=== PATIENT | female | born 1990 | race American Indian/Alaskan Native ===

== ENCOUNTER 2017-02-12 19:13 | Inpatient (IN) | payer MEDICAID ==
--- NOTE | 2017-02-12 19:38 | C.PDOC ---
History Of Present Illness 27 year old female presents to the ED for evaluation of depression and SI wth a plan. Patient reports being depressed and wanting to hang herself. Patient is pleasant and cooperative. Time Seen by Provider: 02/12/17 19:38 Chief Complaint (Nursing): Psychiatric Evaluation History Per: Patient History/Exam Limitations: no limitations Onset/Duration Of Symptoms: Hrs Current Symptoms Are (Timing): Still Present Suicide/Self Injury Attempted (Context): Other (hanging) Modifying Factor(s): None Severity: None Associated Symptoms: Depression, Suicidal Thoughts, Suicidal Plan Involuntary Hold By: None Recent travel outside of the [place]: No Additional History Per: Patient Past Medical History Reviewed: Historical Data, Nursing Documentation, Vital Signs Vital Signs: Last Vital Signs Temp 97.8 F 02/12/17 19:17 Pulse 102 H 02/12/17 19:17 Resp 18 02/12/17 19:17 BP 165/105 H 02/12/17 19:17 Pulse Ox 99 02/12/17 20:52 - Medical History PMH: Depression Surgical History: No Surg Hx Family History: States: Unknown Family Hx - Social History Hx Alcohol Use: No Hx Substance Use: Yes (sober for one month) - Immunization History Hx Tetanus Toxoid Vaccination: No Hx Influenza Vaccination: Yes Hx Pneumococcal Vaccination: No Review Of Systems Constitutional: Negative for: Fever, Chills Cardiovascular: Negative for: Chest Pain, Palpitations Respiratory: Negative for: Cough, Shortness of Breath Gastrointestinal: Negative for: Nausea, Vomiting, Abdominal Pain Skin: Negative for: Rash Neurological: Negative for: Weakness Psych: Positive for: Depression, Suicidal ideation Physical Exam - Physical Exam Appears: Non-toxic, Other (slightly depressed) Skin: Warm, Dry Head: Normacephalic Eye(s): bilateral: Normal Inspection Nose: No Discharge Oral Mucosa: Moist Neck: Supple Chest: Symmetrical Cardiovascular: Rhythm Regular, No Murmur Respiratory: No Decreased Breath Sounds, No Rales, No Rhonchi, No Wheezing Gastrointestinal/Abdominal: Soft, No Tenderness Back: Normal Inspection Extremity: Normal ROM Extremity: Bilateral: Atraumatic Neurological/Psych: Oriented x3 Gait: Steady ED Course And Treatment - Laboratory Results Result Diagrams: 02/12/17 20:25 02/12/17 20:25 O2 Sat by Pulse Oximetry: 99 (On RA) Pulse Ox Interpretation: Normal Progress Note: Plan: -Blood work. -UA. -1:1 obs Disposition Discussed With Dr.: Lakshmi Baum Comment: accepted the pt on her service and took over the care at 9:36 PM Doctor Will See Patient In The: Hospital Counseled Patient/Family Regarding: Studies Performed, Diagnosis - Disposition Disposition: HOSPITALIZED Disposition Time: 19:38 Condition: FAIR Forms: [facility] (Bengali) - Clinical Impression Clinical Impression: Bipolar 1 disorder - Scribe Statement The provider has reviewed the documentation as recorded by the Scribe Herrera King All medical record entries made by the Scribe were at my direction and personally dictated by me. I have reviewed the chart and agree that the record accurately reflects my personal performance of the history, physical exam, medical decision making, and the department course for this patient. I have also personally directed, reviewed, and agree with the discharge instructions and disposition. Decision To Admit - Pt Status Changed To: Hospital Disposition Of: Inpatient - Admit Certification Admit to Inpatient:: After my assessment, the patient will require hospitalization for at least two midnights. This is because of the severity of symptoms shown, intensity of services needed, and/or the medical risk in this patient being treated as an outpatient. - InPatient: Physician Admission Certification: I certify that this patient requires 2 or more midnights of care for the following reason:: After my assessment, the patient will require hospitalization for at least two midnights. This is because of the severity of symptoms shown, intensity of services needed, and/or the medical risk in this patient being treated as an outpatient. - . Bed Request Type: Psychiatry Admitting Physician: Lakshmi Baum Patient Diagnosis: Bipolar 1 disorder
[2017-02-12 20:28] LABS: BASO % 0.7 % (0.0-2.0); EOS % 0.5 % (0.0-4.0); HEMOGLOBIN 13.8 g/dL (11.0-16.0); LYMPH # 1.8 K/uL (1.0-4.3); LYMPH % 31.1 % (20.0-40.0); MEAN CORPUSCULAR HEMOGLOBIN 30.1 pg (27.0-31.0); MEAN CORPUSCULAR HGB CONC 33.8 g/dL (33.0-37.0); MEAN PLATELET VOLUME 7.5 fL (7.2-11.7); MONO # 0.6 K/uL (0.0-0.8); NEUT # 3.2 K/uL (1.8-7.0); NEUT % 56.7 % (50.0-75.0); NRBC % 0.1 % (0.0-2.0); RBC 4.59 Mil/uL (3.80-5.20); RED CELL DISTRIBUTION WIDTH 14.1 % (11.5-14.5); WHITE BLOOD COUNT 5.7 K/uL (4.8-10.8)
[2017-02-12 20:40] LABS: ALBUMIN 4.2 g/dL (3.5-5.0); ALT/SGPT 33 U/L (9-52); AST/SGOT 27 U/L (14-36); BLOOD UREA NITROGEN 7 mg/dL (7-17); CALCIUM 8.6 mg/dl (8.6-10.4); GFR AFRICAN-AMERICAN > 60; GFR NON-AFRICAN AMERICAN > 60
[2017-02-12 20:43] LABS: ALB/GLOB RATIO 1.2 (1.0-2.1)
[2017-02-12 21:01] LABS: HCG,QUALITATIVE URINE NEGATIVE (NEGATIVE); URINE BILIRUBIN NEGATIVE (NEGATIVE); URINE BLOOD NEGATIVE (NEGATIVE); URINE CLARITY Clear (Clear); URINE COLOR Straw (YELLOW); URINE GLUCOSE (UA) NORMAL (Normal); URINE LEUKOCYTE ESTERASE NEG Leu/uL (Negative); URINE NITRATE NEGATIVE (NEGATIVE); URINE PROTEIN NEGATIVE (NEGATIVE); URINE UROBILINOGEN NORMAL mg/dL (0.2-1.0)
[2017-02-12 21:30] LABS: BARBITURATES, UR NEGATIVE (NEGATIVE); BENZODIAZEPINES, UR NEGATIVE (NEGATIVE); OPIATES, UR NEGATIVE (NEGATIVE); PHENCYCLIDINE, UR NEGATIVE (NEGATIVE)
[2017-02-12 22:52] VITALS: O2SAT 98
[2017-02-12] MEDS ORDERED: Magnesium Hydroxide Susp 30 ml UD PO PRN (23:25)
--- NOTE | 2017-02-13 00:24 | PCM.BM ---
Treatment Plan Problems - Problems identified on initial assessmt Suicidal Ideation Date Initiated: 02/12/17 Time Initiated: 22:30 Assessment reference: NA Status: Active Depression Date Initiated: 02/12/17 Time Initiated: :30 Assessment reference: NA Status: Active Treatment assets and liabiliti Patient Assests: cooperative, self-reliant, ADL independent, negotiates basic needs, cognitively intact Patient Liabilities: financial problems, poor support system - Milieu Protocol Maintain good personal hygiene: daily Encourage regular showers, daily Remind patient to perform daily oral care, daily Assist patient to perform ADL's Conduct patient checks and document Observation sheet: Q15 minutes Maintain personal safety: every shift Educate patient to report safety concerns to staff, every shift Monitor environment for contraband/sharps Medication safety: Monitor for expected outcome, potential side effects: every shift, Assess barriers to learning: every shift, Assess readiness for medication education: every shift
--- NOTE | 2017-02-13 18:19 | CP.PCM.CON ---
History of Present Illness - History of Present Illness History of Present Illness: 27 year old female presents to the ED for evaluation of depression and SI wth a plan. Patient reports being depressed and wanting to hang herself. Patient is pleasant and cooperative. transgender / identifies as female hx HIV recently detoxed hx HIV with normal T cells and undetectable on Truvada/ Tivacay plans to got to [place] with her boyfriend Review of Systems - Constitutional Constitutional: As Per HPI - EENT Eyes: absent: As Per HPI, Blind Spots, Blurred Vision, Change in Vision, Decreased Night Vision, Diplopia, Discharge, Dry Eye, Exophthalmos, Floaters, Irritation, Itchy Eyes, Loss of Peripheral Vision, Pain, Photophobia, Requires Corrective Lenses, Sees Flashes, Spots in Vision, Tunnel Vision, Other Visual Disturbances, Loss of Vision, Other Ears: absent: As Per HPI, Decreased Hearing, Ear Discharge, Ear Pain, Tinnitus, Abnormal Hearing, Disequilibrium, Dizziness, Other Nose/Mouth/Throat: absent: As Per HPI, Epistaxis, Nasal Congestion, Nasal Discharge, Nasal Obstruction, Nasal Trauma, Nose Pain, Post Nasal Drip, Sinus Pain, Sinus Pressure, Bleeding Gums, Change in Voice, Dental Pain, Dry Mouth, Dysphagia, Halitosis, Hoarsness, Lip Swelling, Mouth Lesions, Mouth Pain, Odynophagia, Sore Throat, Throat Swelling, Tongue Swelling, Facial Pain, Neck Pain, Neck Mass, Other - Breasts Breasts: absent: As Per HPI, Change in Shape, Mass, Pain, Nipple Discharge, Nipple Inversion, Skin Changes, Swelling, Other - Cardiovascular Cardiovascular: absent: As Per HPI, Acrocyanosis, Chest Pain, Chest Pain at Rest , Chest Pain with Activity, Claudication, Diaphoresis, Dyspnea, Dyspnea on Exertion, Edema, Irregular Heart Rhythm, Pain Radiating to Arm/Neck/Jaw, Leg Edema, Leg Ulcers, Lightheadedness, Orthopnea, Palpitations, Paroxysmal Nocturnal Dyspnea, Pedal Edema, Radiating Pain, Rapid Heart Rate, Slow Heart Rate, Syncope, Other - Respiratory Respiratory: absent: As Per HPI, Cough, Dyspnea, Hemoptysis, Dyspnea on Exertion , Wheezing, Snoring, Stridor, Pain on Inspiration, Chest Congestion, Excessive Mucous Production, Change in Mucous Color, Pain with Coughing, Other - Gastrointestinal Gastrointestinal: absent: As Per HPI, Abdominal Pain, Belching, Bloating, Change in Bowel Habits, Change in Stool Character, Coffee Ground Emesis, Constipation, Cramping, Diarrhea, Dyspepsia, Dysphagia, Early Satiety, Excessive Flatus, Fecal Incontinence, Heartburn, Hematemesis, Hematochezia, Loose Stools, Melena, Nausea, Odynophagia, Temesmus, Vomiting, Other - Genitourinary Genitourinary: absent: As Per HPI, Change in Urinary Stream, Difficulty Urinating, Dysuria, Flank Pain, Hematuria, Pyuria, Nocturia, Urinary Incontinence, Urinary Frequency, Urinary Hesitance, Urinary Urgency, Voiding Freq/Small Amts, Freq UTI, Hx Renal/Bladder Calculi, Hx /Renal Surgery, Bladder Distension, Other - Reproductive: Female Reproductive:Female: absent: As Per HPI, Amenorrhea, Amenorrhea/ Control, Currently Menstual, Cycle <21 Days, Cycle >35 Days, Cycle Variable, Menses 1-7 Days, Menses >/= 8 Days, Menses Variable, Cycle > 4 Weeks Between, No Menses for 6 Months, Heavy Menses, Light Menses, Normal Menses, Spotting Between Cycles , S/P Hysterectomy, Menopausal, Post Menopausal, Premenarche, Abnormal Vaginal Bleeding, Dysmenorrhea, Dyspareunia, Genital Lesions, Genital Pruritis, Pelvic Pain, Prolapse Symptoms, Sexual Dysfunction, Vaginal Discharge, Vaginal Dryness , Vaginal Odor, Vaginal Pruritis, Other - Menstruation Menstruation: absent: As Per HPI, Amenorrhea, Amenorrhea/ Control, Currently Menstual, Cycle <21 Days, Cycle >35 Days, Cycle Variable, Menses 1-7 Days, Menses >/= 8 Days, Menses Variable, Cycle > 4 Weeks Between, No Menses for 6 Months, Heavy Menses, Light Menses, Normal Menses, Spotting Between Cycles , S/P Hysterectomy, Menopausal, Post Menopausal, Premenarche, Abnormal Vaginal Bleeding, Dysmenorrhea, Other - Musculoskeletal Musculoskeletal: absent: As Per HPI, Abnormal Gait, Arthralgias, Atrophy, Back Pain, Deformity, Joint Swelling, Limited Range of Motion, Loss of Height, Muscle Cramps, Muscle Weakness, Myalgias, Neck Pain, Numbness, Radiating Pain into Limb, Stiffness, Tingling, Other - Integumentary Integumentary: absent: As Per HPI, Acne, Alopecia, Bleeding Lesions, Change in Hair, Change in Nails, Change in Pigmentation, Changing Lesions, Dry Skin, Erythema, Furuncle, Hirsutism, Lesions, New Lesions, Non-Healing Lesions, Photosensitivity, Pruritus, Rash, Skin Pain, Skin Ulcer, Sores, Striae, Swelling , Unusual Bruising, Wounds, Jaundice, Other - Neurological Neurological: absent: As Per HPI, Abnormal Gait, Abnormal Hearing, Abnormal Movements, Abnormal Speech, Behavioral Changes, Burning Sensations, Confusion, Convulsions, Disequilibrium, Dizziness, Numbness, Focal Weakness, Frequent Falls , Headaches, Lack of Coordination, Loss of Vision, Memory Loss, Paresthesias, Radicular Pain, Restless Legs, Sensory Deficit, Syncope, Tingling, Tremor, Vertigo, Weakness, Other Visual Disturbances, Other - Psychiatric Psychiatric: As Per HPI - Endocrine Endocrine: absent: As Per HPI, Change in Body Appearance, Change in Libido, Cold Intolorance, Deepening of Voice, Excessive Sweating, Fatigue, Flushing, Heat Intolorance, Increase in Ring/Shoe/Hat Size, Palpitations, Polydipsia, Polyphagia, Polyuria, Other - Hematologic/Lymphatic Hematologic: absent: As Per HPI, Easy Bleeding, Easy Bruising, Lymphadenopathy, Other Past Patient History - Past Social History Smoking Status: Light Smoker < 10 Cigarettes Daily - CARDIAC Hx Cardiac Disorders: No Hx Hypertension: No - PULMONARY Hx Respiratory Disorders: No Hx Tuberculosis: No - NEUROLOGICAL Hx Neurological Disorder: No HX Cerebrovascular Accident: No Hx Seizures: No - HEENT Hx HEENT Problems: No - RENAL Hx Chronic Kidney Disease: No - ENDOCRINE/METABOLIC Hx Endocrine Disorders: No - HEMATOLOGICAL/ONCOLOGICAL Hx Blood Disorders: No Hx Cancer: No Hx Human Immunodeficiency Virus (HIV): No - INTEGUMENTARY Hx Dermatological Problems: No - MUSCULOSKELETAL/RHEUMATOLOGICAL Hx Musculoskeletal Disorders: No - GASTROINTESTINAL Hx Gastrointestinal Disorders: No - GENITOURINARY/GYNECOLOGICAL Hx Genitourinary Disorders: No Hx Sexually Transmitted Disorders: No - PSYCHIATRIC Hx Substance Use: Yes - SURGICAL HISTORY Hx Surgeries: Yes Other/Comment: Rt shoulder - ANESTHESIA Hx Anesthesia: No Hx Anesthesia Reactions: No Meds Allergies/Adverse Reactions: Allergies Allergy/AdvReac Type Severity Reaction Status Date / Time hydromorphone [From Dilaudid] Allergy RASH Verified 02/12/17 19:21 - Medications Medications: Current Medications Acetaminophen (Tylenol 325mg Tab) 650 mg PO Q6 PRN PRN Reason: Pain, moderate (4-7) Bupropion HCl (Wellbutrin Sr 150 Mg) 150 mg PO DAILY [facility] Escitalopram Oxalate (Lexapro) 10 mg PO DAILY [facility] Last Admin: 02/13/17 10:17 Dose: 10 mg Hydroxyzine HCl (Atarax) 25 mg PO Q6 PRN PRN Reason: Anxiety Last Admin: 02/12/17 23:41 Dose: 25 mg Magnesium Hydroxide (Milk Of Magnesia) 30 ml PO Q8 PRN PRN Reason: Constipation Oxcarbazepine (Trileptal) 150 mg PO BID [facility] Last Admin: 02/13/17 17:42 Dose: 150 mg Spironolactone (Aldactone) 50 mg PO DAILY [facility] Trazodone HCl (Desyrel) 50 mg PO HS PRN PRN Reason: Insomnia Last Admin: 02/12/17 23:41 Dose: 50 mg Physical Exam - Constitutional Appears: Non-toxic, Chronically Ill - Head Exam Head Exam: NORMOCEPHALIC - Eye Exam Eye Exam: PERRL - ENT Exam ENT Exam: Mucous Membranes Dry - Neck Exam Neck exam: Negative for: Lymphadenopathy - Respiratory Exam Respiratory Exam: Decreased Breath Sounds - Cardiovascular Exam Cardiovascular Exam: REGULAR RHYTHM - GI/Abdominal Exam GI & Abdominal Exam: Diminished Bowel Sounds, Soft. absent: Tenderness - Rectal Exam Rectal Exam: Deferred - Exam Exam: NORMAL INSPECTION - Extremities Exam Extremities exam: Positive for: pedal pulses present. Negative for: calf tenderness, pedal edema, tenderness - Back Exam Back exam: absent: CVA tenderness (L), CVA tenderness (R) - Neurological Exam Neurological exam: Alert, CN II-XII Intact, Oriented x3, Reflexes Normal - Psychiatric Exam Psychiatric exam: Depressed, Normal Affect - Skin Skin Exam: Dry, Intact Results - Vital Signs Recent Vital Signs: Last Vital Signs Temp 98.4 F 02/13/17 06:41 Pulse 83 02/13/17 16:31 Resp 18 02/13/17 06:41 BP 111/57 L 02/13/17 16:31 Pulse Ox 98 02/12/17 22:51 - Labs Result Diagrams: 02/12/17 20:25 02/12/17 20:25 Labs: Laboratory Results - last 24 hr 02/12/17 02/12/17 02/12/17 20:25 20:25 20:54 WBC 5.7 RBC 4.59 Hgb 13.8 Hct 40.8 MCV 89.0 MCH 30.1 MCHC 33.8 RDW 14.1 Plt Count 300 MPV 7.5 Neut % (Auto) 56.7 Lymph % (Auto) 31.1 [place] % (Auto) 11.0 H Eos % (Auto) 0.5 Baso % (Auto) 0.7 Neut # 3.2 Lymph # 1.8 [place] # 0.6 Eos # 0.0 Baso # 0.0 Sodium 134 Potassium 3.7 Chloride 96 L Carbon Dioxide 30 Anion Gap 11 BUN 7 Creatinine 0.8 Est GFR ( Amer) > 60 Est GFR (Non-Af Amer) > 60 Random Glucose 93 Calcium 8.6 Total Bilirubin 0.4 AST 27 ALT 33 Alkaline Phosphatase 83 Total Protein 7.8 Albumin 4.2 Globulin 3.6 Albumin/Globulin Ratio 1.2 Urine Color Straw Urine Clarity Clear Urine pH 7.0 Ur Specific [place] 1.010 Urine Protein Negative Urine Glucose (UA) Normal Urine Ketones Negative Urine Blood Negative Urine Nitrate Negative Urine Bilirubin Negative Urine Urobilinogen Normal Ur Leukocyte Esterase Neg Urine WBC (Auto) < 1 Urine RBC (Auto) < 1 Urine HCG, Qual Negative Urine Opiates Screen Urine Methadone Screen Ur Barbiturates Screen Ur Phencyclidine Scrn Ur Amphetamines Screen U Benzodiazepines Scrn U Oth Cocaine Metabols U Cannabinoids Screen Alcohol, Quantitative < 10 02/12/17 20:54 WBC RBC Hgb Hct MCV MCH MCHC RDW Plt Count MPV Neut % (Auto) Lymph % (Auto) [place] % (Auto) Eos % (Auto) Baso % (Auto) Neut # Lymph # [place] # Eos # Baso # Sodium Potassium Chloride Carbon Dioxide Anion Gap BUN Creatinine Est GFR ( Amer) Est GFR (Non-Af Amer) Random Glucose Calcium Total Bilirubin AST ALT Alkaline Phosphatase Total Protein Albumin Globulin Albumin/Globulin Ratio Urine Color Urine Clarity Urine pH Ur Specific [place] Urine Protein Urine Glucose (UA) Urine Ketones Urine Blood Urine Nitrate Urine Bilirubin Urine Urobilinogen Ur Leukocyte Esterase Urine WBC (Auto) Urine RBC (Auto) Urine HCG, Qual Urine Opiates Screen Negative Urine Methadone Screen Negative Ur Barbiturates Screen Negative Ur Phencyclidine Scrn Negative Ur Amphetamines Screen Negative U Benzodiazepines Scrn Negative U Oth Cocaine Metabols Negative U Cannabinoids Screen Negative Alcohol, Quantitative Assessment & Plan (1) HIV (human immunodeficiency virus infection) Status: Acute (2) HIV (human immunodeficiency virus infection) Status: Acute (3) Bipolar 1 disorder Status: Acute - Assessment and Plan (Free Text) Assessment: denies OI or risk for OI will restart HAART rx
[2017-02-13] MEDS: Emtricitabine-Tenofovir 200 mg-300 mg Tab PO SCH (18:50)
[2017-02-14] MEDS: Emtricitabine-Tenofovir 200 mg-300 mg Tab PO SCH (10:12)
[2017-02-14] MEDS: buPROPion SR 150 MG TABLET PO SCH (10:12)
--- NOTE | 2017-02-14 23:01 | PCM.PSYCH ---
Initial Psychiatric Evaluation - Initial Psychiatric Evaluation Type of Admission: Voluntary Legal Status: Capacity Chief Complaint (in patient's own words): I am feeing depressed.' History of Present Illness and Precipitating Events: Patient is a 27 year old AA transgender F with a significant psychiatric history presented to the with her boyfriend Neil with SI with the plan to hang herself. Pt reports a long history of bipolar disorder. As per the ED notes, 'patient stated on assessment that I have always been suicidal however the precipitant to todays visit was learning she was no longer welcome at [facility] in [place]. Patient has been living at the [facility] for several months. During that time she reports regular use of crystal meth. A month or so ago while visiting in [place] she was hospitalized and placed on a watch secondary to attempting suicide by jumping off of a bridge. Due to her active substance abuse patient was transferred to a rehab program which she completed. Patient reports 30 days clean and sober. It was on the ride back to [place] she learned she kicked out and was effectively homeless. Patient reports she was diagnosed with Bipolar Disorder at the age of 14. Since then she reports approximately 15 admissions both voluntary and involuntary at various facilities in [place], [place], [place] and [place]. Patient reports she is prescribed Trazodone and Depakote but has not taken her meds in 3 months. Patient reports a history of multiple suicide attempts by hanging, jumping off of a bridge and cutting the right way. Patient also reports a family history of suicide. Her maternal uncle completed suicide. Patient reports smoking marijuana on a daily basis since the age of 16. Patient started using Crystal Meth when she was 17. Patient denies any substance use for the past month. Patient has been on hormone therapy for the past 6 months however reports she hasnt taken her meds for the past month while in rehab. Today pt still reports depressed mood and feelings of hopelessness and helplessness. She reports suicidal ideation but denies any AVH or any paranoia. She reports irritability and agitation. PMH HIV Current Medications: Active Medications Generic Name Dose Route Start Last Admin Trade Name Freq PRN Reason Stop Dose Admin Acetaminophen 650 mg 02/12/17 23:24 Tylenol 325mg Tab PO Q6 PRN Pain, moderate (4-7) Bupropion HCl 150 mg 02/14/17 10:00 02/14/17 10:12 Wellbutrin Sr 150 Mg PO 150 mg DAILY [facility] Administration Dolutegravir Sodium 50 mg 02/13/17 18:30 02/14/17 10:12 Tivicay PO 50 mg DAILY [facility] Administration Emtricitabine/Tenofovir 1 tab 02/13/17 18:45 02/14/17 10:12 Truvada 200 Mg-300 Mg PO 1 tab DAILY [facility] Administration Escitalopram Oxalate 10 mg 02/13/17 10:00 02/14/17 10:12 Lexapro PO 10 mg DAILY [facility] Administration Hydroxyzine HCl 25 mg 02/12/17 23:27 02/12/17 23:41 Atarax PO 25 mg Q6 PRN Administration Anxiety Magnesium Hydroxide 30 ml 02/12/17 23:25 Milk Of Magnesia PO Q8 PRN Constipation Oxcarbazepine 150 mg 02/13/17 18:00 02/14/17 17:43 Trileptal PO 150 mg BID [facility] Administration Spironolactone 50 mg 02/14/17 10:00 02/14/17 10:12 Aldactone PO 50 mg DAILY [facility] Administration Trazodone HCl 50 mg 02/12/17 23:21 02/14/17 22:15 Desyrel PO 50 mg HS PRN Administration Insomnia Past Psychiatric History - Past Psychiatric History Previous Treatment History: Inpatient Pertinent Medical Hx (Current Medical&Sleep Prob, Allergies): Allergies Allergy/AdvReac Type Severity Reaction Status Date / Time hydromorphone [From Dilaudid] Allergy RASH Verified 02/12/17 19:21 No Known Home Med 02/12/17 Review of Systems - Review of Systems All systems: reviewed and no additional remarkable complaints except - Psychiatric Psychiatric: Anxiety, Difficulty Concentrating, Irritability, Suicidal Ideation Mental Status Examination - Personal Presentation Personal Presentation: Looks stated age - Affect Affect: Constricted, Depressed - Motor Activity Motor Activity: Psychomotor Retardation - Reliability in Providing Information Reliability in Providing Information: Fair - Speech Speech: Organized - Mood Mood: Depressed, Anxious - Formal Thought Process Formal Thought Process: No Impairment - Obsessions/Compulsions Obsessions: No Compulsions: No - Cognitive Functions Orientation: Person, Place, Situation, Time Sensorium: Alert Attention/Concentration: Attentive Abstract Thinking: [place] Estimate of Intelligence: Below average Judgement: Imparied, as evidence by: Poor judgement, Imparied, as evidence by: Lack of insight into illness - Risk Risk: Suicidal, Diminished functioning - Limitations Limitations: Living alone DSM 5 DX - DSM 5 DSM 5 Diagnosis: Bipolar disorder depressed severe without psychotic features 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
[2017-02-15] MEDS: Emtricitabine-Tenofovir 200 mg-300 mg Tab PO SCH (09:42)
[2017-02-15] MEDS: buPROPion SR 150 MG TABLET PO SCH (09:42)
--- NOTE | 2017-02-15 14:39 | PCM.PYCHPN ---
Psychiatric Progress Note - Psychiatric Progress Note Patient seen today, length of contact: 16 min Patient Chief Complaint: I am feeing depressed.' Problems Identified/Issues Discussed: Patient seen and evaluated, chart reviewed and discussed with the nurse. She reports depressed mood and feelings of hopelessness and helplessness. She still reports suicidal ideation without any plan. Patient remained isolated, confined and withdrawn. Patient is compliant with medications and denies any side effects. Symptoms are improving but need more time to stabilize. Support and psychoeducation given. Medication Change: Yes Medical Record Reviewed: Yes Mental Status Examination - Cognitive Function Orientation: Person, Place, Situation, Time Memory: Intact Attention: WNL Concentration: Poor Association: WNL Fund of Knowledge: Poor - Mood Mood: Depressed, Anxious - Affect Affect: Constricted, Depressed - Speech Speech: Soft - Formal Thought Process Formal Thought Process: No Impairment - Suicidal Ideation Suicidal Ideation: No - Homicidal Ideation Homicidal Ideation: No Goal/Treatment Plan - Goal/Treatment Plan Need for Continued Stay: Severe depression anxiety, Severe functional impairment Progress Toward Problem(s) and Goals/Treatment Plan: Bipolar disorder depressed severe without psychotic features -CBT -Psychoeducation -Supportive therapy, group therapy, individual therapy -Bupropion 150 mg PO Daily -Lexapro 10 mg PO Daily -Oxcarbazepine 150 mg PO BID -Trazodone 50 mg by mouth daily at bedtime 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
[2017-02-16] MEDS: Emtricitabine-Tenofovir 200 mg-300 mg Tab PO SCH (09:43)
[2017-02-16] MEDS: buPROPion SR 150 MG TABLET PO SCH (09:43)
--- NOTE | 2017-02-16 10:32 | PCM.PYCHPN ---
Psychiatric Progress Note - Psychiatric Progress Note Patient seen today, length of contact: 15 min Patient Chief Complaint: I am feeling little better.' Problems Identified/Issues Discussed: Patient seen and evaluated, chart reviewed and discussed with the nurse. As per the staff, pt started coming out of her room. She reports some improvement in her mood and reports some improvement in the feelings of hopelessness and helplessness. She reports some improvement in her sleep and appetite as well. She denies any AVH. Patient is compliant with medications and denies any side effects. Symptoms are improving but need more time to stabilize. Support and psychoeducation given. Medication Change: Yes Medical Record Reviewed: Yes Mental Status Examination - Cognitive Function Orientation: Person, Place, Situation, Time Memory: Intact Attention: WNL Concentration: Poor Association: WNL Fund of Knowledge: Poor - Mood Mood: Depressed, Anxious - Affect Affect: Constricted, Depressed - Speech Speech: Soft - Formal Thought Process Formal Thought Process: No Impairment - Suicidal Ideation Suicidal Ideation: No - Homicidal Ideation Homicidal Ideation: No Goal/Treatment Plan - Goal/Treatment Plan Need for Continued Stay: Severe depression anxiety, Severe functional impairment Progress Toward Problem(s) and Goals/Treatment Plan: Bipolar disorder depressed severe without psychotic features -CBT -Psychoeducation -Supportive therapy, group therapy, individual therapy -Bupropion 150 mg PO Daily -Lexapro 10 mg PO Daily -Oxcarbazepine 150 mg PO BID -Trazodone 50 mg by mouth daily at bedtime 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
--- NOTE | 2017-02-16 18:09 | CP.PCM.PN ---
Subjective - Date & Time of Evaluation Date of Evaluation: 02/16/17 Time of Evaluation: 09:00 - Subjective Subjective: events noted rx in progress Objective - Vital Signs/Intake and Output Vital Signs (last 24 hours): Temp Pulse Resp BP Pulse Ox 98 F 86 16 122/81 98 02/16/17 06:17 02/16/17 15:51 02/16/17 06:17 02/16/17 15:51 02/12/17 22:51 - Medications Medications: Current Medications Acetaminophen (Tylenol 325mg Tab) 650 mg PO Q6 PRN PRN Reason: Pain, moderate (4-7) Bupropion HCl (Wellbutrin Sr 150 Mg) 150 mg PO DAILY FOR[facility]LY [facility], [facility]1983 Last Admin: 02/16/17 09:43 Dose: 150 mg Dolutegravir Sodium (Tivicay) 50 mg PO DAILY [facility], [facility]1983 Last Admin: 02/16/17 09:43 Dose: 50 mg Emtricitabine/Tenofovir (Truvada 200 Mg-300 Mg) 1 tab PO DAILY FOR[facility]LY [facility], [facility] Last Admin: 02/16/17 09:43 Dose: 1 tab Escitalopram Oxalate (Lexapro) 10 mg PO DAILY [facility] Last Admin: 02/16/17 09:43 Dose: 10 mg Hydroxyzine HCl (Atarax) 25 mg PO Q6 PRN PRN Reason: Anxiety Last Admin: 02/12/17 23:41 Dose: 25 mg Magnesium Hydroxide (Milk Of Magnesia) 30 ml PO Q8 PRN PRN Reason: Constipation Oxcarbazepine (Trileptal) 150 mg PO BID [facility] Last Admin: 02/16/17 09:43 Dose: 150 mg Spironolactone (Aldactone) 50 mg PO DAILY [facility] Last Admin: 02/16/17 09:43 Dose: 50 mg Trazodone HCl (Desyrel) 50 mg PO HS PRN PRN Reason: Insomnia Last Admin: 02/15/17 22:18 Dose: 50 mg - Labs Labs: 02/12/17 20:25 02/12/17 20:25 Assessment and Plan (1) HIV (human immunodeficiency virus infection) Status: Acute (2) HIV (human immunodeficiency virus infection) Status: Acute (3) Bipolar 1 disorder Status: Acute
[2017-02-17 06:30] VITALS: RESP 18; TEMP 98.3
[2017-02-17] MEDS: buPROPion SR 150 MG TABLET PO SCH (10:03)
[2017-02-17] MEDS: Emtricitabine-Tenofovir 200 mg-300 mg Tab PO SCH (10:03)
--- NOTE | 2017-02-17 13:02 | PCM.PYCHPN ---
Psychiatric Progress Note - Psychiatric Progress Note Patient seen today, length of contact: 15 min Patient Chief Complaint: I am feeling little better.' Problems Identified/Issues Discussed: Patient seen and evaluated, chart reviewed and discussed with the nurse. As per the staff, pt reports a lot of improvement in her mood and feelings of hopelessness and helplessness. She reports improvement in her sleep and appetite as well. She denies any suicidal ideation and any homicidal ideation and any AVH. Patient is compliant with medications and denies any side effects. Symptoms are improving but need more time to stabilize. Support and psychoeducation given. Medication Change: Yes Medical Record Reviewed: Yes Mental Status Examination - Cognitive Function Orientation: Person, Place, Situation, Time Memory: Intact Attention: WNL Concentration: WNL Association: WNL Fund of Knowledge: Poor - Mood Mood: Depressed, Anxious - Affect Affect: Constricted, Depressed - Speech Speech: Soft - Formal Thought Process Formal Thought Process: No Impairment - Suicidal Ideation Suicidal Ideation: No - Homicidal Ideation Homicidal Ideation: No Goal/Treatment Plan - Goal/Treatment Plan Need for Continued Stay: Severe depression anxiety, Severe functional impairment Progress Toward Problem(s) and Goals/Treatment Plan: Bipolar disorder depressed severe without psychotic features -CBT -Psychoeducation -Supportive therapy, group therapy, individual therapy -Bupropion 150 mg PO Daily -Lexapro 10 mg PO Daily -Oxcarbazepine 150 mg PO BID -Trazodone 50 mg by mouth daily at bedtime Methamphetamine use d/o severe Cannabis use d/o severe -Monitor signs and symptoms -Use [place] for abstinence -Psychoeducation HIV -Continue prescribed medications
[2017-02-18 06:19] VITALS: BP 98/60; PULSE 71
[2017-02-18] MEDS: buPROPion SR 150 MG TABLET PO SCH (09:50)
[2017-02-18] MEDS: Emtricitabine-Tenofovir 200 mg-300 mg Tab PO SCH (09:50)
--- NOTE | 2017-02-18 10:54 | PCM.PYCHDC ---
Mental Status Examination - Mental Status Examination Orientation: Person, Place, Situation, Time Memory: Intact Mood: Neutral Affect: Constricted Speech: Soft Attention: WNL Concentration: WNL Association: WNL Fund of Knowledge: WNL Formal Thought Process: No Impairment Description of patient's judgement and insight: good, fair Psychotic Thoughts and Behaviors: denies any AVH Suicidal Ideation: No Current Homicidal Ideation?: No Discharge Summary - Discharge Note Reason for Hospitalization: Patient is a 27 year old AA transgender F with a significant psychiatric history presented to the with her boyfriend Neil with SI with the plan to hang herself. Pt reports a long history of bipolar disorder. As per the ED notes, 'patient stated on assessment that I have always been suicidal however the precipitant to todays visit was learning she was no longer welcome at [facility] in [place]. Patient has been living at the [facility] for several months. During that time she reports regular use of crystal meth. A month or so ago while visiting in [place] she was hospitalized and placed on a watch secondary to attempting suicide by jumping off of a bridge. Due to her active substance abuse patient was transferred to a rehab program which she completed. Patient reports 30 days clean and sober. It was on the ride back to [place] she learned she kicked out and was effectively homeless. Patient reports she was diagnosed with Bipolar Disorder at the age of 14. Since then she reports approximately 15 admissions both voluntary and involuntary at various facilities in [place], [place], [place] and [place]. Patient reports she is prescribed Trazodone and Depakote but has not taken her meds in 3 months. Patient reports a history of multiple suicide attempts by hanging, jumping off of a bridge and cutting the right way. Patient also reports a family history of suicide. Her maternal uncle completed suicide. Patient reports smoking marijuana on a daily basis since the age of 16. Patient started using Crystal Meth when she was 17. Patient denies any substance use for the past month. Patient has been on hormone therapy for the past 6 months however reports she hasnt taken her meds for the past month while in rehab. Today pt still reports depressed mood and feelings of hopelessness and helplessness. She reports suicidal ideation but denies any AVH or any paranoia. She reports irritability and agitation. Consultations:: List each consultation separately and include: 1. Reason for request. 2. Findings. 3. Follow-up Summary of Hospital Course include:: 1. Description of specific treatment plan utilized for patients during their course of treatmen. 2. Summarize the time- course for resolution of acute symptoms and/or regressed behaviors. 3. Describe issues identified and worked on during hospitalization. 4. Describe medication utilized. 5. Describe medical problems identified and treated. 6. Reassessment of suicide risk Summary of Hospital Course: During the course of her stay, patient (pt) started progressively improving and no longer remained irritable, depressed, and suicidal. Her mood and anxiety were improved and she started attending groups and meetings and started socializing. Patient denied any feelings of hopelessness, helplessness, and worthlessness, denied any problem with the sleep or appetite, denied suicidal ideation or homicidal ideation. Pt denied any auditory or visual hallucinations. Some changes were made in her current medications and patient was discharged on following medications. She tolerated these medications very well and denied any side effects. Pt stated that she will be leaving to [place] with her boyfriend on 02/21. She will follow-up with treatment in that state. - Final Diagnosis (DSM 5) Condition upon Discharge: FAIR DSM 5: Bipolar disorder depressed severe without psychotic features Methamphetamine use d/o severe Disposition: HOME/ ROUTINE Follow-up Treatment Plan: Education: Pt was educated and counseled about the risks and benefits of taking and not taking medications. Pt was educated and counseled about the risks of drinking and abusing drugs. Pt was educated and counseled to go to the ER or call 911 if pt develop suicidal ideation or homicidal ideation, worsening of symptoms or severe side effects of the meds. Prescriptions/Medication Reconciliation: buPROPion SR [Wellbutrin SR 150 MG] 150 mg PO DAILY #30 tab Dolutegravir Sodium [Tivicay] 50 mg PO DAILY #30 tab Emtricitabine/Tenofovir Diso [Truvada 200 MG-300 MG] 1 tab PO DAILY #30 tab Escitalopram [Lexapro] 10 mg PO DAILY #30 tab OXcarbazepine [Trileptal] 150 mg PO BID #60 tab Spironolactone [Aldactone] 50 mg PO DAILY #30 tab traZODone [Desyrel] 50 mg PO HS PRN #30 tab PRN Reason: Insomnia - Smoking Cessation Smoking Cessation Medication prescribed: No - Antipsychotic Medications Pt discharged on 2 or more routine antipsychotic medications: No
== END 2017-02-18 02:30 | disposition home or self-care (01) | DRG 430 ==
LOC: C.ER 19:13 → C.5E 21:35 → C.9E 21:35
PROVIDERS: ADMIT Psychiatry & Neurology Psychiatry; ATTEND Psychiatry & Neurology Psychiatry
PROC: GZHZZZZ Group Psychotherapy (ICD-10-PCS; principal; 2017-02-12)
PROC: GZ58ZZZ Individual Psychotherapy, Cognitive-Behavioral (ICD-10-PCS; 2017-02-12)
PROC: GZ56ZZZ Individual Psychotherapy, Supportive (ICD-10-PCS; 2017-02-12)
PROC: HZ52ZZZ Individual Psychotherapy for Substance Abuse Treatment, Cognitive-Behavioral (ICD-10-PCS; 2017-02-12)
PROC: HZ59ZZZ Individual Psychotherapy for Substance Abuse Treatment, Supportive (ICD-10-PCS; 2017-02-12)
PROC: HZ56ZZZ Individual Psychotherapy for Substance Abuse Treatment, Psychoeducation (ICD-10-PCS; 2017-02-12)
DX: F31.4 Bipolar disorder, current episode depressed, severe, without psychotic features (principal); B20 Human immunodeficiency virus [HIV] disease; R45.851 Suicidal ideations; F15.20 Other stimulant dependence, uncomplicated; Z59.0 Homelessness; F17.210 Nicotine dependence, cigarettes, uncomplicated; F12.20 Cannabis dependence, uncomplicated; F64.9 Gender identity disorder, unspecified

== ENCOUNTER 2017-02-25 03:01 | Inpatient (IN) | payer MEDICAID ==
[2017-02-25 04:52] LABS: BASO % 0.5 % (0.0-2.0); EOS # 0.1 K/uL (0.0-0.7); EOS % 3.1 % (0.0-4.0); HEMOGLOBIN 13.2 g/dL (11.0-16.0); LYMPH # 1.7 K/uL (1.0-4.3); LYMPH % 40.1 % (20.0-40.0); MEAN CORPUSCULAR HEMOGLOBIN 29.6 pg (27.0-31.0); MEAN CORPUSCULAR HGB CONC 33.7 g/dL (33.0-37.0); MEAN PLATELET VOLUME 7.9 fL (7.2-11.7); MONO # 0.4 K/uL (0.0-0.8); MONO % 10.4 % (0.0-10.0); NEUT # 1.9 K/uL (1.8-7.0); NEUT % 45.9 % (50.0-75.0); RBC 4.45 Mil/uL (3.80-5.20); RED CELL DISTRIBUTION WIDTH 13.4 % (11.5-14.5); WHITE BLOOD COUNT 4.1 K/uL (4.8-10.8)
--- NOTE | 2017-02-25 05:02 | C.PDOC ---
Time Seen by Provider: 02/25/17 03:44 Chief Complaint (Nursing): Psychiatric Evaluation Past Medical History Vital Signs: Last Vital Signs Temp 98.7 F 02/25/17 04:46 Pulse 70 02/25/17 04:46 Resp 16 02/25/17 04:46 BP 106/70 02/25/17 04:46 Pulse Ox 99 02/25/17 04:46 - Medical History PMH: Anxiety, Bipolar Disorder, Depression Denies: Diabetes, Hepatitis, HIV, HTN, Chronic Kidney Disease, Seizures, Sexually Transmitted Disease - [facility] [place] Procedures GROUP PSYCHOTHERAPY (02/12/17) INDIV PSYCHOTHERAPY FOR SUBSTANCE ABUSE TREATMENT, SUPPORT (02/12/17) INDIV PSYCHOTHERAPY FOR SUBSTANCE ABUSE, COGNITIV BEHAVIORAL (02/12/17) INDIV PSYCHOTHERAPY FOR SUBSTANCE ABUSE, PSYCHOEDUCATION (02/12/17) INDIVIDUAL PSYCHOTHERAPY, COGNITIVE-BEHAVIORAL (02/12/17) INDIVIDUAL PSYCHOTHERAPY, SUPPORTIVE (02/12/17) Family History: States: Unknown Family Hx - Social History Hx Alcohol Use: No Hx Substance Use: No - Immunization History Hx Tetanus Toxoid Vaccination: No Hx Influenza Vaccination: Yes Hx Pneumococcal Vaccination: No ED Course And Treatment - Laboratory Results Result Diagrams: 02/25/17 04:39 O2 Sat by Pulse Oximetry: 99 Disposition - Disposition
--- NOTE | 2017-02-25 05:04 | C.PDOC ---
History Of Present Illness 27 year old female presents to the ER stating she has suicidal ideation with desire to jump off a bridge. Denies physical complaints at this time. Pt is calm and cooperative. Time Seen by Provider: 02/25/17 03:44 Chief Complaint (Nursing): Psychiatric Evaluation History Per: Patient History/Exam Limitations: no limitations Onset/Duration Of Symptoms: Days Current Symptoms Are (Timing): Still Present Modifying Factor(s): None Associated Symptoms: Suicidal Thoughts, Suicidal Plan Involuntary Hold By: None Recent travel outside of the [place]: No Past Medical History Reviewed: Historical Data, Nursing Documentation, Vital Signs Vital Signs: Last Vital Signs Temp 98.7 F 02/25/17 04:46 Pulse 70 02/25/17 04:46 Resp 16 02/25/17 04:46 BP 106/70 02/25/17 04:46 Pulse Ox 99 02/25/17 05:12 - Medical History PMH: Anxiety, Bipolar Disorder, Depression - [facility] Procedures GROUP PSYCHOTHERAPY (02/12/17) INDIV PSYCHOTHERAPY FOR SUBSTANCE ABUSE TREATMENT, SUPPORT (02/12/17) INDIV PSYCHOTHERAPY FOR SUBSTANCE ABUSE, COGNITIV BEHAVIORAL (02/12/17) INDIV PSYCHOTHERAPY FOR SUBSTANCE ABUSE, PSYCHOEDUCATION (02/12/17) INDIVIDUAL PSYCHOTHERAPY, COGNITIVE-BEHAVIORAL (02/12/17) INDIVIDUAL PSYCHOTHERAPY, SUPPORTIVE (02/12/17) Family History: States: Unknown Family Hx - Social History Hx Alcohol Use: No Hx Substance Use: No - Immunization History Hx Tetanus Toxoid Vaccination: No Hx Influenza Vaccination: Yes Hx Pneumococcal Vaccination: No Review Of Systems Constitutional: Negative for: Fever, Chills Gastrointestinal: Negative for: Nausea, Vomiting, Diarrhea Psych: Positive for: Suicidal ideation Physical Exam - Physical Exam Appears: Non-toxic, No Acute Distress Skin: Normal Color, Warm, Dry Head: Atraumatic, Normacephalic Eye(s): bilateral: Normal Inspection Oral Mucosa: Moist Chest: Symmetrical, No Tenderness Cardiovascular: Rhythm Regular Respiratory: Normal Breath Sounds, No Rales, No Rhonchi, No Wheezing Neurological/Psych: Oriented x3, Normal Speech ED Course And Treatment - Laboratory Results Result Diagrams: 02/25/17 04:39 02/25/17 04:39 O2 Sat by Pulse Oximetry: 99 (room air) Pulse Ox Interpretation: Normal Progress Note: Blood work and urinalysis ordered. Patient is being evaluated by cold storage worker for possible psych admission. PT IS MEDICALLY CLEARED FOR PSYCH ADMISSION Reevaluation Time: 06:36 Disposition Counseled Patient/Family Regarding: Diagnosis, Need For Followup - Disposition Disposition: HOSPITALIZED Disposition Time: 06:34 Condition: FAIR Forms: [facility] ([place]) - Clinical Impression Clinical Impression: Recurrent major depression - PA / HOME INSURANCE AGENT / Resident Statement MD/DO has reviewed & agrees with the documentation as recorded. - Scribe Statement The provider has reviewed the documentation as recorded by the Scribe Apollo Wick All medical record entries made by the Samyibjonah were at my direction and personally dictated by me. I have reviewed the chart and agree that the record accurately reflects my personal performance of the history, physical exam, medical decision making, and the department course for this patient. I have also personally directed, reviewed, and agree with the discharge instructions and disposition.
[2017-02-25 05:16] LABS: ALBUMIN 3.2 g/dL (3.5-5.0); ALT/SGPT 32 U/L (9-52); AST/SGOT 22 U/L (14-36); BLOOD UREA NITROGEN 9 mg/dL (7-17); CALCIUM 7.4 mg/dl (8.6-10.4); GFR AFRICAN-AMERICAN > 60; GFR NON-AFRICAN AMERICAN > 60
[2017-02-25 05:56] LABS: SQUAMOUS EPITHIAL < 1 /hpf (0-5); URINE BILIRUBIN NEGATIVE (NEGATIVE); URINE BLOOD NEGATIVE (NEGATIVE); URINE CLARITY Clear (Clear); URINE COLOR Yellow (YELLOW); URINE GLUCOSE (UA) NORMAL (Normal); URINE LEUKOCYTE ESTERASE NEG Leu/uL (Negative); URINE NITRATE NEGATIVE (NEGATIVE); URINE PROTEIN NEGATIVE (NEGATIVE)
[2017-02-25 05:58] LABS: HCG,QUALITATIVE URINE NEGATIVE (NEGATIVE)
[2017-02-25 06:10] LABS: BARBITURATES, UR NEGATIVE (NEGATIVE); BENZODIAZEPINES, UR NEGATIVE (NEGATIVE); OPIATES, UR NEGATIVE (NEGATIVE); PHENCYCLIDINE, UR NEGATIVE (NEGATIVE)
--- NOTE | 2017-02-25 11:05 | PCM.PSYCH ---
Initial Psychiatric Evaluation - Initial Psychiatric Evaluation Type of Admission: Voluntary Legal Status: Capacity Chief Complaint (in patient's own words): I was feeling depressed.' History of Present Illness and Precipitating Events: Pt is a 27yr old transgender female, with a hx of bipolar d/o and substance abuse, came to the hospital with depressed mood and suicidal ideations, with a plan to jump off the bridge. Dining Room Maid is familiar with the patient . Patient was just discharged from [facility] almost a week ago. As per the patient soon after discharge she could not follow-up aftercare. As a result she could not get her medications. She relapsed on ecstasy and started abusing increasing amount of drugs. Yesterday she became increasingly depressed, felt suicidal ideation, so came to the hospital to get help she reports depressed mood, feelings of hopelessness and helplessness, poor sleep and poor appetite. She also reports irritability and agitation. She denies any psychosis or any auditory or visual hallucinations. She denies any other substance abuse. Past medical history HIV Past Psychiatric History - Past Psychiatric History Previous Treatment History: Inpatient Pertinent Medical Hx (Current Medical&Sleep Prob, Allergies): Allergies Allergy/AdvReac Type Severity Reaction Status Date / Time hydromorphone [From Dilaudid] Allergy RASH Verified 02/12/17 19:21 Dolutegravir Sodium [Tivicay] 50 mg PO DAILY #30 tab 02/18/17 Emtricitabine/Tenofovir Diso [Truvada 200 MG-300 MG] 1 tab PO DAILY #30 tab 07/01 Escitalopram [Lexapro] 10 mg PO DAILY #30 tab 02/18/17 OXcarbazepine [Trileptal] 150 mg PO BID #60 tab 02/18/17 Spironolactone [Aldactone] 50 mg PO DAILY #30 tab 02/18/17 buPROPion SR [Wellbutrin SR 150 MG] 150 mg PO DAILY #30 tab 02/18/17 traZODone [Desyrel] 50 mg PO HS PRN #30 tab 02/18/17 Review of Systems - Review of Systems All systems: reviewed and no additional remarkable complaints except - Psychiatric Psychiatric: Anxiety, Irritability, Suicidal Ideation Mental Status Examination - Personal Presentation Personal Presentation: Looks stated age - Affect Affect: Constricted, Depressed - Motor Activity Motor Activity: Calm - Reliability in Providing Information Reliability in Providing Information: Good - Speech Speech: Organized - Mood Mood: Depressed, Anxious - Formal Thought Process Formal Thought Process: No Impairment - Obsessions/Compulsions Obsessions: No Compulsions: No - Cognitive Functions Orientation: Person, Place, Situation, Time Sensorium: Alert Attention/Concentration: Attentive Abstract Thinking: [place] Estimate of Intelligence: Below average Judgement: Imparied, as evidence by: Poor judgement, Imparied, as evidence by: Lack of insight into illness - Risk Risk: Suicidal, Diminished functioning - Limitations Limitations: Living alone DSM 5 DX - DSM 5 DSM 5 Diagnosis: Bipolar disorder depressed severe without psychotic features Amphetamine use disorder severe - Recommended/Plan of Treatment Treatment Recommendations and Plan of Treatment: Bipolar disorder depressed severe without psychotic features CBT Psychoeducation Supportive therapy, individual therapy Wellbutrin 150 mg PO daily Trazodone 50 mg PO Q HS Trileptal 150 mg PO BID Amphetamine use disorder severe CBT Psychoeducation Supportive therapy, individual therapy Use [place] for abstinence HIV Continue prescribed medications - Smoking Cessation Smoking Cessation Initiated: No
--- NOTE | 2017-02-25 15:19 | PCM.BM ---
<Christel Sam - Last Filed: 02/25/17 15:16> Treatment Plan Problems - Problems identified on initial assessmt Depression Date Initiated: 02/25/17 Time Initiated: 15:17 Assessment reference: NA Status: Active Substance Abuse Date Initiated: 02/25/17 Time Initiated: 15:17 Assessment reference: NA Status: Active Treatment assets and liabiliti Patient Assests: cooperative, self-reliant, ADL independent, negotiates basic needs, cognitively intact Patient Liabilities: live alone, substance abuse - Milieu Protocol Maintain good personal hygiene: daily Encourage regular showers, every shift Remind patient to perform daily oral care, every shift Assist patient to perform ADL's Maintain personal safety: every shift Educate patient to report safety concerns to staff, every shift Monitor environment for contraband/sharps Medication safety: Monitor for expected outcome, potential side effects: every shift, Assess barriers to learning: every shift, Assess readiness for medication education: every shift <Lexy Simon - Last Filed: 02/28/17 11:34> Family Contact Family involvement: Famliy/SO not involved - Goals for Treatment Patient goals for treatment: "I want to go to rehab in [place]." Discharge/Continuing Care - Education Needs Education Needs: Patient Medication, Patient Coping Skills, Patient Placement options, Patient Community resources - Discharge Discharge Criteria: Tolerates medication w/o severe side effects, No longer exhibiting s/s of withdrawal, Reduction of target symptoms Discharge to:: Substance Abuse Rehab - Treatment Team Participation Discussed with Family/SO: No Was Patient/Family/SO present at Treatment Team Meeting: Yes <Leslie Burns - Last Filed: 02/28/17 11:39> - Diagnosis (1) Bipolar disorder, curr episode mixed, severe, w/o psychotic features Status: Acute Interventions: 02/28/17 11:38 * Assess/adjust medications daily and /or as needed * See patient on an individual basis 7x/week to assess level of manic behaviors and stability * Discuss risks, benefits, side effects and alternatives of medications * (2) Methamphetamine dependence Status: Acute Interventions: 02/28/17 11:39 * Assess 7x/week regarding severity of withdrawal * Educate regarding risks, benefits, side effects and alternatives of medications * Use Motivational Interviewing for abstinence * Use CBT for relapse prevention * Medication management for withdrawal symptoms * Encourage medication assisted treatment *
[2017-02-26] MEDS: buPROPion SR 150 MG TABLET PO SCH (09:54)
[2017-02-26] MEDS: Emtricitabine-Tenofovir 200 mg-300 mg Tab PO SCH (09:55)
--- NOTE | 2017-02-26 11:36 | PCM.PYCHPN ---
Psychiatric Progress Note - Psychiatric Progress Note Patient seen today, length of contact: 15 min Patient Chief Complaint: I was feeling depressed.' Problems Identified/Issues Discussed: Patient seen and evaluated, chart reviewed and discussed with the nurse. Patient still reports depressed mood and reports at times feelings of hopelessness or helplessness. Patient still appears isolated, depressed and withdrawn. She denies any auditory or visual hallucinations or any psychotic symptoms. She needs some more time for stabilization. She is compliant with her medications and denies any side effects. Supportive therapy and psychoeducation were given. Medication Change: No Medical Record Reviewed: Yes Mental Status Examination - Cognitive Function Orientation: Person, Place, Situation, Time Memory: Intact Attention: WNL Concentration: Poor Association: WNL Fund of Knowledge: Poor - Mood Mood: Depressed, Anxious - Affect Affect: Constricted, Depressed - Speech Speech: Soft - Formal Thought Process Formal Thought Process: No Impairment - Suicidal Ideation Suicidal Ideation: No - Homicidal Ideation Homicidal Ideation: No Goal/Treatment Plan - Goal/Treatment Plan Need for Continued Stay: Severe depression anxiety, Severe functional impairment Progress Toward Problem(s) and Goals/Treatment Plan: Bipolar disorder depressed severe without psychotic features CBT Psychoeducation Supportive therapy, individual therapy Wellbutrin 150 mg PO daily Trazodone 50 mg PO Q HS Trileptal 150 mg PO BID Amphetamine use disorder severe CBT Psychoeducation Supportive therapy, individual therapy Use [place] for abstinence HIV Continue prescribed medications - Smoking Cessation Smoking Cessation Initiated: No
[2017-02-27] MEDS: buPROPion SR 150 MG TABLET PO SCH (09:29)
[2017-02-27] MEDS: Emtricitabine-Tenofovir 200 mg-300 mg Tab PO SCH (09:29)
--- NOTE | 2017-02-27 13:34 | PCM.PYCHPN ---
Psychiatric Progress Note - Psychiatric Progress Note Patient seen today, length of contact: 15 min Patient Chief Complaint: I was feeling depressed.' Medication Change: No Medical Record Reviewed: Yes Mental Status Examination - Cognitive Function Orientation: Person, Place, Situation, Time Memory: Intact Attention: WNL Concentration: Poor Association: WNL Fund of Knowledge: Poor - Mood Mood: Depressed, Anxious - Affect Affect: Constricted, Depressed - Speech Speech: Soft - Formal Thought Process Formal Thought Process: No Impairment - Suicidal Ideation Suicidal Ideation: No - Homicidal Ideation Homicidal Ideation: No Goal/Treatment Plan - Goal/Treatment Plan Need for Continued Stay: Remain at risks for inpatient hospitalization, Severe functional impairment Progress Toward Problem(s) and Goals/Treatment Plan: Bipolar disorder depressed severe without psychotic features CBT Psychoeducation Supportive therapy, individual therapy Wellbutrin 150 mg PO daily Trazodone 50 mg PO Q HS Trileptal 150 mg PO BID Amphetamine use disorder severe CBT Psychoeducation Supportive therapy, individual therapy Use [place] for abstinence HIV Continue prescribed medications - Smoking Cessation Smoking Cessation Initiated: No
[2017-02-28] MEDS: buPROPion SR 150 MG TABLET PO SCH (09:03)
[2017-02-28] MEDS: Emtricitabine-Tenofovir 200 mg-300 mg Tab PO SCH (09:03)
--- NOTE | 2017-02-28 16:20 | PCM.PYCHPN ---
Psychiatric Progress Note - Psychiatric Progress Note Patient seen today, length of contact: 15 min Patient Chief Complaint: I am feeling much better.' Problems Identified/Issues Discussed: Patient seen and evaluated, chart reviewed and discussed with the nurse. The patient reports improvement in her mood and reports improvement in her feelings of hopelessness and helplessness. She was met with the treatment team today. As per her, she could not go to the rehabilitation and she relapsed on ecstasy. She reports improvement in her irritability and agitation. She also reports some improvement in sleep. She is taking medications and denies any side effects. Symptoms are improving but she needs more time for socialization. Supportive therapy and psychoeducation were given. Medication Change: Yes (Increase Wellbutrin) Medical Record Reviewed: Yes Mental Status Examination - Cognitive Function Orientation: Person, Place, Situation, Time Memory: Intact Attention: WNL Concentration: Poor Association: WNL Fund of Knowledge: Poor - Mood Mood: Depressed, Anxious - Affect Affect: Constricted, Depressed - Speech Speech: Soft - Formal Thought Process Formal Thought Process: No Impairment - Suicidal Ideation Suicidal Ideation: No - Homicidal Ideation Homicidal Ideation: No Goal/Treatment Plan - Goal/Treatment Plan Need for Continued Stay: Severe depression anxiety, Severe functional impairment Progress Toward Problem(s) and Goals/Treatment Plan: Bipolar disorder depressed severe without psychotic features CBT Psychoeducation Supportive therapy, individual therapy Increase Wellbutrin to 300 mg PO daily Trazodone 50 mg PO Q HS Trileptal 150 mg PO BID Amphetamine use disorder severe CBT Psychoeducation Supportive therapy, individual therapy Use [place] for abstinence HIV Continue prescribed medications - Smoking Cessation Smoking Cessation Initiated: No
--- NOTE | 2017-03-01 09:34 | PCM.PYCHPN ---
Psychiatric Progress Note - Psychiatric Progress Note Patient seen today, length of contact: 15 min Patient Chief Complaint: I am still feeling depressed.' Problems Identified/Issues Discussed: Patient seen and evaluated, chart reviewed and discussed with the nurse. Today patient reports depressed mood, and anhidonia. However, she reports improvement in her mood and anxiety. She reports improvement in her irritability and agitation. She is taking medications and denies any side effects. Symptoms are improving but she needs more time for stabilization. Patient is trying to get into the in-patient rehab with the help of the social media community manager. Supportive therapy and psychoeducation were given. Medication Change: Yes (Increase Wellbutrin) Medical Record Reviewed: Yes Mental Status Examination - Cognitive Function Orientation: Person, Place, Situation, Time Memory: Intact Attention: WNL Concentration: Poor Association: WNL Fund of Knowledge: Poor - Mood Mood: Depressed, Anxious - Affect Affect: Constricted, Depressed - Speech Speech: Soft - Formal Thought Process Formal Thought Process: No Impairment - Suicidal Ideation Suicidal Ideation: No - Homicidal Ideation Homicidal Ideation: No Goal/Treatment Plan - Goal/Treatment Plan Need for Continued Stay: Severe depression anxiety, Severe functional impairment Progress Toward Problem(s) and Goals/Treatment Plan: Bipolar disorder depressed severe without psychotic features CBT Psychoeducation Supportive therapy, individual therapy Wellbutrin 300 mg PO daily Trazodone 50 mg PO Q HS Trileptal 150 mg PO BID Amphetamine use disorder severe CBT Psychoeducation Supportive therapy, individual therapy Use [place] for abstinence HIV Continue prescribed medications - Smoking Cessation Smoking Cessation Initiated: No
[2017-03-01] MEDS: Emtricitabine-Tenofovir 200 mg-300 mg Tab PO SCH (10:18)
[2017-03-01] MEDS: buPROPion SR 150 MG TABLET PO SCH (10:18)
--- NOTE | 2017-03-02 09:36 | PCM.PYCHPN ---
Psychiatric Progress Note - Psychiatric Progress Note Patient seen today, length of contact: 15 min Patient Chief Complaint: I was feeling depressed.' Problems Identified/Issues Discussed: Patient seen and evaluated, chart reviewed and discussed with the nurse. Patient reports somewhat improvement in her mood than yesterday. She reports improvement in her depressive s/s mood and anxiety. She reports improvement in her irritability and agitation. She is taking medications and denies any side effects. Symptoms are improving but she needs more time for stabilization. Patient is trying to get into the in-patient rehab with the help of the bilingual social worker. Supportive therapy and psychoeducation were given. Medication Change: Yes (Increase Wellbutrin) Medical Record Reviewed: Yes Mental Status Examination - Cognitive Function Orientation: Person, Place, Situation, Time Memory: Intact Attention: WNL Concentration: Poor Association: WNL Fund of Knowledge: Poor - Mood Mood: Depressed, Anxious - Affect Affect: Constricted, Depressed - Speech Speech: Soft - Formal Thought Process Formal Thought Process: No Impairment - Suicidal Ideation Suicidal Ideation: No - Homicidal Ideation Homicidal Ideation: No Goal/Treatment Plan - Goal/Treatment Plan Need for Continued Stay: Severe depression anxiety, Severe functional impairment Progress Toward Problem(s) and Goals/Treatment Plan: Bipolar disorder depressed severe without psychotic features CBT Psychoeducation Supportive therapy, individual therapy Wellbutrin 300 mg PO daily Trazodone 50 mg PO Q HS Trileptal 150 mg PO BID Amphetamine use disorder severe CBT Psychoeducation Supportive therapy, individual therapy Use [place] for abstinence HIV Continue prescribed medications - Smoking Cessation Smoking Cessation Initiated: No
[2017-03-02] MEDS: buPROPion SR 150 MG TABLET PO SCH (09:47)
[2017-03-02] MEDS: Emtricitabine-Tenofovir 200 mg-300 mg Tab PO SCH (09:47)
[2017-03-03] MEDS: buPROPion SR 150 MG TABLET PO SCH (10:01)
[2017-03-03] MEDS: Emtricitabine-Tenofovir 200 mg-300 mg Tab PO SCH (10:01)
--- NOTE | 2017-03-03 10:23 | PCM.PYCHPN ---
Psychiatric Progress Note - Psychiatric Progress Note Patient seen today, length of contact: 15 min Patient Chief Complaint: I was feeling depressed.' Problems Identified/Issues Discussed: Patient seen and evaluated, chart reviewed and discussed with the nurse. Patient reports somewhat improvement in her mood than yesterday. She reports improvement in her depressive s/s mood and anxiety. She reports improvement in her irritability and agitation. She is taking medications and denies any side effects. Symptoms are improving but she needs more time for stabilization. Patient is trying to get into the in-patient rehab with the help of the 7th grade social studies teacher. Supportive therapy and psychoeducation were given. Medication Change: No Medical Record Reviewed: Yes Mental Status Examination - Cognitive Function Orientation: Person, Place, Situation, Time Memory: Intact Attention: WNL Concentration: Poor Association: WNL Fund of Knowledge: Poor - Mood Mood: Depressed, Anxious - Affect Affect: Constricted, Depressed - Speech Speech: Soft - Formal Thought Process Formal Thought Process: No Impairment - Suicidal Ideation Suicidal Ideation: No - Homicidal Ideation Homicidal Ideation: No Goal/Treatment Plan - Goal/Treatment Plan Need for Continued Stay: Remain at risks for inpatient hospitalization, Severe functional impairment Progress Toward Problem(s) and Goals/Treatment Plan: Bipolar disorder depressed severe without psychotic features CBT Psychoeducation Supportive therapy, individual therapy Wellbutrin 150 mg PO daily Trazodone 50 mg PO Q HS Trileptal 150 mg PO BID Amphetamine use disorder severe CBT Psychoeducation Supportive therapy, individual therapy Use [place] for abstinence HIV Continue prescribed medications
[2017-03-04] MEDS: Emtricitabine-Tenofovir 200 mg-300 mg Tab PO SCH (09:39)
[2017-03-04] MEDS: buPROPion SR 150 MG TABLET PO SCH (09:40)
--- NOTE | 2017-03-04 10:57 | PCM.PYCHPN ---
Psychiatric Progress Note - Psychiatric Progress Note Patient seen today, length of contact: 15 min Patient Chief Complaint: I was feeling little better.' Problems Identified/Issues Discussed: Patient seen and evaluated, chart reviewed and discussed with the nurse. As per the staff, pt reports improvement in her mood. She reports improvement in her depressive s/s mood and anxiety. She reports improvement in her irritability and agitation. Patient is still trying to get into the in-patient rehab or planning to go to the [facility]. She is taking medications and denies any side effects. Symptoms are improving but she needs more time for stabilization. Supportive therapy and psychoeducation were given. Medication Change: No Medical Record Reviewed: Yes Mental Status Examination - Cognitive Function Orientation: Person, Place, Situation, Time Memory: Intact Attention: WNL Concentration: Poor Association: WNL Fund of Knowledge: Poor - Mood Mood: Depressed, Anxious - Affect Affect: Constricted, Depressed - Speech Speech: Soft - Formal Thought Process Formal Thought Process: No Impairment - Suicidal Ideation Suicidal Ideation: No - Homicidal Ideation Homicidal Ideation: No Goal/Treatment Plan - Goal/Treatment Plan Need for Continued Stay: Remain at risks for inpatient hospitalization, Severe functional impairment Progress Toward Problem(s) and Goals/Treatment Plan: Bipolar disorder depressed severe without psychotic features CBT Psychoeducation Supportive therapy, individual therapy Wellbutrin 300 mg PO daily Increase Trazodone 100 mg PO Q HS Trileptal 150 mg PO BID Amphetamine use disorder severe CBT Psychoeducation Supportive therapy, individual therapy Use [place] for abstinence HIV Continue prescribed medications - Smoking Cessation Smoking Cessation Initiated: No
[2017-03-05] MEDS: Emtricitabine-Tenofovir 200 mg-300 mg Tab PO SCH (09:10)
[2017-03-05] MEDS: buPROPion SR 150 MG TABLET PO SCH (09:10)
--- NOTE | 2017-03-05 17:46 | PCM.PYCHPN ---
Psychiatric Progress Note - Psychiatric Progress Note Patient seen today, length of contact: 15 min Medication Change: No Medical Record Reviewed: Yes Mental Status Examination - Cognitive Function Orientation: Person, Place, Situation, Time Memory: Intact Attention: WNL Concentration: Poor Association: WNL Fund of Knowledge: Poor - Mood Mood: Depressed, Anxious - Affect Affect: Constricted, Depressed - Speech Speech: Soft - Formal Thought Process Formal Thought Process: No Impairment - Suicidal Ideation Suicidal Ideation: No - Homicidal Ideation Homicidal Ideation: No Goal/Treatment Plan - Goal/Treatment Plan Need for Continued Stay: Remain at risks for inpatient hospitalization, Severe functional impairment
[2017-03-06] MEDS: Emtricitabine-Tenofovir 200 mg-300 mg Tab PO SCH (09:10)
[2017-03-06] MEDS: buPROPion SR 150 MG TABLET PO SCH (09:11)
[2017-03-07 06:24] VITALS: BP 101/61; PULSE 71; RESP 20; TEMP 97.5; O2SAT 97
[2017-03-07] MEDS: Emtricitabine-Tenofovir 200 mg-300 mg Tab PO SCH (09:00)
[2017-03-07] MEDS: buPROPion SR 150 MG TABLET PO SCH (09:01)
--- NOTE | 2017-03-07 09:52 | PCM.PYCHDC ---
Mental Status Examination - Mental Status Examination Orientation: Person, Place, Situation, Time Memory: Intact Mood: Neutral Affect: Constricted Speech: Soft Attention: WNL Concentration: WNL Association: WNL Fund of Knowledge: WNL Formal Thought Process: No Impairment Description of patient's judgement and insight: good, fair Psychotic Thoughts and Behaviors: denies any AVH Suicidal Ideation: No Current Homicidal Ideation?: No Discharge Summary - Discharge Note Reason for Hospitalization: Pt is a 27yr old transgender female, with a hx of bipolar d/o and substance abuse, came to the hospital with depressed mood and suicidal ideations, with a plan to jump off the bridge. [employer] is familiar with the patient . Patient was just discharged from [facility] ([facility]] almost a week ago. As per the patient soon after discharge she could not follow-up aftercare. As a result she could not get her medications. She relapsed on ecstasy and started abusing increasing amount of drugs. Yesterday she became increasingly depressed, felt suicidal ideation, so came to the hospital to get help she reports depressed mood, feelings of hopelessness and helplessness, poor sleep and poor appetite. She also reports irritability and agitation. She denies any psychosis or any auditory or visual hallucinations. She denies any other substance abuse. Consultations:: List each consultation separately and include: 1. Reason for request. 2. Findings. 3. Follow-up Summary of Hospital Course include:: 1. Description of specific treatment plan utilized for patients during their course of treatmen. 2. Summarize the time- course for resolution of acute symptoms and/or regressed behaviors. 3. Describe issues identified and worked on during hospitalization. 4. Describe medication utilized. 5. Describe medical problems identified and treated. 6. Reassessment of suicide risk Summary of Hospital Course: During the course of his stay, patient (pt) started progressively improving and he no longer remained irritable, depressed, and suicidal. His mood was improved and he started attending groups and meetings and started socializing. Patient denied any feelings of hopelessness, helplessness, and worthlessness, denied any problem with the sleep or appetite, denied suicidal ideation or homicidal ideation. Pt denied any auditory or visual hallucinations. Some changes were made in his current medications and patient was discharged on following medications. He tolerated these medications very well and denied any side effects. Pt is to go to [employer] in [place] to pharmacy picking tech her check. Pt will then buy a [employer] ticket to [facility], where she will enter a program for homeless LGBTQ clients. SW provided pt with cab voucher to [employer]. LOS also provided pt with information for [facility] outpatient program and homeless group home. - Diagnosis (1) Bipolar disorder, curr episode mixed, severe, w/o psychotic features Current Visit: Yes Status: Acute (2) Methamphetamine dependence Current Visit: Yes Status: Acute - Final Diagnosis (DSM 5) Condition upon Discharge: FAIR DSM 5: Bipolar disorder depressed severe without psychotic features Amphetamine use disorder severe Disposition: HOME/ ROUTINE Follow-up Treatment Plan: Education: Pt was educated and counseled about the risks and benefits of taking and not taking medications. Pt was educated and counseled about the risks of drinking and abusing drugs. Pt was educated and counseled to go to the ER or call 911 if pt develop suicidal ideation or homicidal ideation, worsening of symptoms or severe side effects of the meds. Prescriptions/Medication Reconciliation: buPROPion SR [Wellbutrin SR 150 MG] 300 mg PO DAILY #30 tab Dolutegravir Sodium [Tivicay] 50 mg PO DAILY #30 tab Emtricitabine/Tenofovir Diso [Truvada 200 MG-300 MG] 1 tab PO DAILY #30 tab OXcarbazepine [Trileptal] 150 mg PO BID #60 tab traZODone [Desyrel] 100 mg PO HS PRN #30 tab PRN Reason: Insomnia - Smoking Cessation Smoking Cessation Medication prescribed: No - Antipsychotic Medications Pt discharged on 2 or more routine antipsychotic medications: No
== END 2017-03-07 13:15 | disposition home or self-care (01) | DRG 430 ==
LOC: C.ER 03:01 → C.9E 06:32 → C.5E 08:22
PROVIDERS: ADMIT Psychiatry & Neurology Psychiatry; ATTEND Psychiatry & Neurology Psychiatry
PROC: GZHZZZZ Group Psychotherapy (ICD-10-PCS; principal; 2017-02-25)
PROC: GZ58ZZZ Individual Psychotherapy, Cognitive-Behavioral (ICD-10-PCS; 2017-02-25)
PROC: GZ56ZZZ Individual Psychotherapy, Supportive (ICD-10-PCS; 2017-02-25)
DX: F31.4 Bipolar disorder, current episode depressed, severe, without psychotic features (principal); R45.851 Suicidal ideations; F15.20 Other stimulant dependence, uncomplicated; F41.9 Anxiety disorder, unspecified; F64.9 Gender identity disorder, unspecified; Z21 Asymptomatic human immunodeficiency virus [HIV] infection status

== ENCOUNTER 2017-12-27 09:27 | Emergency (ER) | payer MEDICAID ==
[2017-12-27 09:53] VITALS: RESP 18
[2017-12-27 10:08] LABS: BASO # 0.1 K/uL (0.0-0.2); BASO % 1.2 % (0.0-2.0); EOS # 0.1 K/uL (0.0-0.7); HEMOGLOBIN 14.4 g/dL (11.0-16.0); LYMPH # 1.9 K/uL (1.0-4.3); LYMPH % 42.1 % (20.0-40.0); MEAN CELL VOLUME 86.8 fL (81.0-99.0); MEAN CORPUSCULAR HEMOGLOBIN 29.3 pg (27.0-31.0); MEAN CORPUSCULAR HGB CONC 33.8 g/dL (33.0-37.0); MEAN PLATELET VOLUME 8.1 fL (7.2-11.7); MONO # 0.5 K/uL (0.0-0.8); MONO % 11.7 % (0.0-10.0); NEUT # 1.9 K/uL (1.8-7.0); RBC 4.92 Mil/uL (3.80-5.20); RED CELL DISTRIBUTION WIDTH 13.8 % (11.5-14.5); WHITE BLOOD COUNT 4.5 K/uL (4.8-10.8)
[2017-12-27 10:21] LABS: ALB/GLOB RATIO 1.1 (1.0-2.1); ALBUMIN 4.1 g/dL (3.5-5.0); ALT/SGPT 29 U/L (9-52); AST/SGOT 40 U/L (14-36); BLOOD UREA NITROGEN 16 mg/dL (7-17); CALCIUM 8.9 mg/dl (8.6-10.4); GFR NON-AFRICAN AMERICAN > 60
--- NOTE | 2017-12-27 11:00 | C.PDOC ---
History Of Present Illness 27-year-old female, presents to the emergency department with complaints of suicidal ideation. Patient also reports that she is homeless and wants a place to stay. Patient denies any plan. She denies any fever, vomiting, HI. Time Seen by Provider: 12/27/17 09:29 Chief Complaint (Nursing): Psychiatric Evaluation History Per: Patient History/Exam Limitations: no limitations Past Medical History Reviewed: Historical Data, Nursing Documentation, Vital Signs Vital Signs: Last Vital Signs Temp 97.5 F L 12/27/17 09:52 Pulse 69 12/27/17 09:52 Resp 18 12/27/17 09:52 BP 130/86 12/27/17 09:52 Pulse Ox 100 12/27/17 09:52 - Medical History PMH: Anxiety, Bipolar Disorder, Depression - [facility] Procedures GROUP PSYCHOTHERAPY (02/25/17) INDIV PSYCHOTHERAPY FOR SUBSTANCE ABUSE TREATMENT, SUPPORT (02/12/17) INDIV PSYCHOTHERAPY FOR SUBSTANCE ABUSE, COGNITIV BEHAVIORAL (02/12/17) INDIV PSYCHOTHERAPY FOR SUBSTANCE ABUSE, PSYCHOEDUCATION (02/12/17) INDIVIDUAL PSYCHOTHERAPY, COGNITIVE-BEHAVIORAL (02/25/17) INDIVIDUAL PSYCHOTHERAPY, SUPPORTIVE (02/25/17) Family History: States: No Known Family Hx - Social History Hx Alcohol Use: No Hx Substance Use: Yes - Immunization History Hx Tetanus Toxoid Vaccination: No Hx Influenza Vaccination: Yes Hx Pneumococcal Vaccination: No Review Of Systems Psych: Positive for: Depression, Suicidal ideation. Negative for: Psychosis Physical Exam - Physical Exam Appears: Non-toxic, No Acute Distress Skin: Warm, Dry, No Rash Head: Atraumatic Eye(s): bilateral: Normal Inspection Nose: Normal Lips: Normal Appearing Neck: Normal ROM, Supple Chest: Symmetrical, No Tenderness Cardiovascular: Rhythm Regular, No Friction Rub, No Murmur Respiratory: Normal Breath Sounds, No Accessory Muscle Use, No Wheezing Gastrointestinal/Abdominal: Soft, No Tenderness Back: Normal Inspection Extremity: Normal ROM, No Deformity Neurological/Psych: Oriented x3, Normal Speech, Normal Cognition Gait: Steady ED Course And Treatment - Laboratory Results Result Diagrams: 12/27/17 10:03 12/27/17 10:03 O2 Sat by Pulse Oximetry: 100 (on RA) Pulse Ox Interpretation: Normal (RA) Medical Decision Making Medical Decision Making: Patient found to be un-cooperative and states she is under the influence of crystal meth. Patient was evaluated by crisis and they state the patient does not meet admission criteria. Psych oncall state that the patient can be discharged home. Disposition - Disposition Referrals: [facility] [place] [Outside] Disposition: HOME/ ROUTINE Disposition Time: 11:33 Condition: STABLE Additional Instructions: Return if worsened/ Instructions: Drug Abuse and Drug Addiction (DC) Forms: [employer] ([place]) - Clinical Impression Clinical Impression: Drug abuse - Scribe Statement The provider has reviewed the documentation as recorded by the Scribe (Jarvis Owen) All medical record entries made by the Scribe were at my direction and personally dictated by me. I have reviewed the chart and agree that the record accurately reflects my personal performance of the history, physical exam, med [facility] decision making, and the department course for this patient. I have also personally directed, reviewed, and agree with the discharge instructions and disposition.
[2017-12-27 12:52] VITALS: BP 116/73; PULSE 78; TEMP 98; O2SAT 98
== END 2017-12-27 12:52 | disposition home or self-care (01) ==
LOC: C.ER 09:27
DX: F19.10 Other psychoactive substance abuse, uncomplicated (principal); Z59.0 Homelessness